=== PATIENT | male | born 1950 | race Caucasian/White ===

== ENCOUNTER 2020-04-12 09:50 | Emergency (ER) | payer MEDICARE ==
[2020-04-12 11:33] LABS: BASOPHIL 0.6 % (0-2); EOSINOPHIL 1.9 % (0-7); HCT 45.5 % (42.0-52.0); HGB 15.1 g/dl (13.2-18.0); LYMPHOCYTE 12.9 % (15-48); MCH 32.3 pg (25.0-31.0); MCHC 33.2 g/dL (32.0-36.0); MCV 97.2 fL (78.0-100.0); MONOCYTE 6.4 % (0-12); NEUTROPHIL 77.9 % (41-80); NRBC 0; PLT 214 K/uL (150-400); RBC 4.68 M/uL (4.70-6.00); RDW 13.4 % (11.5-14.0)
[2020-04-12 11:49] LABS: ALBUMIN 3.4 g/dL (3.4-5.0); BILIRUBIN - TOTAL 0.4 mg/dL (0.2-1.0); BUN/CREAT RATIO (CALC) 14.1 RATIO; CREATININE 0.99 mg/dL (0.67-1.17); GLOBULIN (CALCULATION) 3.4 g/dL; POTASSIUM 4.3 mmol/L (3.5-5.1); TOTAL PROTEIN 6.8 g/dL (6.4-8.2)
[2020-04-12 11:59] LABS: LACTIC ACID 3.3 mmol/L (0.4-1.9)
[2020-04-12] MEDS ORDERED: CLEOCIN300 MG PO (14:45)
== END 2020-04-12 15:00 | disposition home or self-care (01) ==
LOC: FER 09:50
PROVIDERS: Emergency Medicine
DX: L03.031 Cellulitis of right toe (principal); E11.9 Type 2 diabetes mellitus without complications; Z86.73 Personal history of transient ischemic attack (TIA), and cerebral infarction without residual deficits; Z88.5 Allergy status to narcotic agent
CPT/HCPCS: 36415; 73700; 80053; 83605; 84145; 85025